=== PATIENT | female | born 1985 | race Caucasian/White ===

== ENCOUNTER 2017-08-12 06:00 | Inpatient (IN) ==
--- OUTSIDE RECORDS SUMMARY | 2017-08-12 06:11 | External Medical Summary | Continuity of Care Document ---
:1985 Author Organization [facility] Address [address] [place], [place] [address] Phone Allergies, Adverse Reactions, Alerts Substance Reaction Severity Status ibuprofen Unknown Active Medications Medication Instructions Dosage Effective Dates Status Comments (start - stop) 28 mg take 1 tablet by Not Available - Active iron-800 mcg oral route every tablet day Problems Condition Effective Dates (start - stop) Clinical Status Encounter for [facility] - , first trimester Less than 8 weeks gestation of - Procedures Procedure Date Unknown Results Test Name Date and Time Measure Units Reference Range Abnormal Flag Comments Unknown Advance Directives Directive Yes / No Effective Date File Name Unknown Encounters Encounter Practice Location Reason(s) Diagnoses Date Provider Care Team Description For Visit Members Rossana [place] [facility]os In [facility] -2016 Wendy. [facility] [place], Medical [address], [place], [address], [id number], [place], tel:[phone], [address] [place]. tel:[phone] Rossana [place] Encounter for Burgos In [facility] of -2017 Wendy. [facility], normal Medical [address], , [place], first [place] [address], [id number], trimesterLess [place], [place] than 8 weeks [place], tel:[phone] gestation of [id number], [id number] [place]. tel:[phone] Family History Family Member Diagnosis Age At Onset No family history of Stroke No family history of Breast Cancer Paternal Grandmother Diabetes No family history of Colon Cancer No family history of Cardiovascular Disease No family history of Epilepsy No family history of Uterine Cancer No family history of Lung Disease Father Kidney Disease No family history of Hypertension No family history of Thyroid Disorder No family history of Ovarian Cancer No family history of Pulmonary Embolism No family history of Venous Thrombosis No family history of Osteoporosis Immunizations Vaccine Date Status Comments Unknown Payers Payer name Insurance type Covered republican ID Authorization(s) Unknown Social History Type Description Quantity Date Captured Unknown Vital Signs Date / Height Weight BMI Pulse Blood Temperature Respiratory Body Head BMI Time: Rate Pressure Rate Surface Circumference percentile Area Unknown Chief Complaint And Reason For Visit Unknown Chief Complaint And Reason For Visit Reason For Referral Reason For Referral Unknown Plan Of Care Date Type Action Status Appointment Marina Dejesus BOOKED Date Type Problem Goal Intervention Status Start Date Unknown. History Of Present Illness Encounter Date Complaint History Of Present Illness This patient has no known history of present illness Functional Status Encounter Date Functional Assessment Cognitive Assessment Unknown Medications Administered Medication Instructions Dosage Effective Dates (start - stop) Status Comments Drug Treatment Unknown Instructions Date Instruction Additional Information new ob handbook HIV and other routine tests risk factors identified by history travel tobacco (ask, advise, assess, assist and arrange) alcohol illicit / recreational drugs use of any medications (including supplements, vitamins, herbs, OTC drugs) smoking counseling domestic violence seat belt use childbirth classes / hospital facilities anticipated course of care nutrition and weight gain counseling, special diet toxoplasmosis precautions (cats / raw meat) sexual activity exercise indications for ultrasound influenza vaccine environmental / work hazards hospital registration genetic testing Zika virus assessment & precautions
--- OUTSIDE RECORDS SUMMARY | 2017-08-12 06:11 | External Medical Summary | Continuity of Care Document ---
:1987 Author Organization [facility] Address [address] [place], [place] [address] Phone Allergies, Adverse Reactions, Alerts Substance Reaction Severity Status ibuprofen Unknown Active Medications Medication Instructions Dosage Effective Dates Status Comments (start - stop) 28 mg take 1 tablet by Not Available - Active iron-800 mcg oral route every tablet day Problems Condition Effective Dates (start - stop) Clinical Status Encounter for suprvsn of normal - , second trimester 26 weeks gestation of - Encounter for suprvsn of normal - , first trimester Less than 8 weeks gestation of - Matern care for oth or susp poor fetl - gr, 1st tri, unsp 13 weeks gestation of - Matern care for oth or susp poor fetl - grth, 2nd tri, unsp 18 weeks gestation of - Low lying placenta NOS or w/out - hemorrhage, second trimester 18 weeks gestation of - Encounter for suprvsn of normal - , second trimester 22 weeks gestation of - Procedures Procedure Date OB Visit No Charge Glucose test Hemoglobin count, colorimetric Hematocrit blood count Venpnctr fngr/heel/ear stick routne Results Test Name Date and Time Measure Units Reference Range Abnormal Flag Comments Panel Description: Glucose [Mass/volume] in Serum or Plasma --1 hour post 50 g glucose PO GLUCOSE, GESTATIONAL 84 mg/dL <140 N Test performed at [facility] (50G)-140 15:50:00 DIAGNOSTICS [id number] [place] [id number]: GASTON SAENZ DO,MPH Panel Description: HEMOGLOBIN + HEMATOCRIT HEMOGLOBIN 15:50:00 11.5 g/dL 11.7-15.5 L HEMATOCRIT 15:50:00 32.7 % 35.0-45.0 L REPORT COMMENT:FASTING :NOTest performed at [facility] [id number] [place] [address]Director: GASTON SAENZ DO,MPH Advance Directives Directive Yes / No Effective Date File Name Unknown Encounters Encounter Practice Location Reason(s) Diagnoses Date Provider Care Description For Visit Team Members Rossana [place] En[facility] for Nov-2 [facility] [place]. Clai MCMILLAN, normal 7 700 [address], , [facility] , [email or web address] [place] weeks gestation 120, tel:[phone], [id number] , [place]. tel:[phone] Rossana [place] Encounter for Oct-2 [facility] [place]. Cali MCMILLAN, normal 7 700 [address], , [place], [place], [facility] , [email or web address] [place] Figuered[place] weeks gestation 120, tel:[phone], [id number] , [place]. tel:[phone] Rossana [place] Low lying Sep-2 Burgos In Womens placenta NOS or 5-201 Wendy. Cali MCMILLAN, w/out 7 700 [address], hemorrhage, [facility] , [id number] [place] Figuered[place] weeks gestation 120, tel:[phone], [id number] , [place]. tel:[phone] Rossana [place] Matern care for Sep-2 Burgos In Womens Ultrasound oth or susp - Wendy. Cali MCMILLAN, poor fetl grth, 7 700 [address], 2nd tri, unsp18 [place], [place], weeks gestation Center , of [place] Fig[place]red[place] 120, tel:[phone] [place] [address] [place], [id number] , [place]. tel: [phone] Rossana [place] Matern care for Jan- Burgos In Womens oth or susp 3-201 Wendy. [facility] [place], poor fetl grth, 7 700 [address], 1st tri, unsp13 [place], [place], weeks gestation Center [id number], of [place] Fig[place]red[place] 120, tel:[phone] [place] [address] [place], [id number] , [place]. tel: [phone] Rossana [place] Encounter for Dec- Burgos In Womens suprvsn of 6-201 Wendy. Health [place], normal 7 700 [address], , [place], [place], first Center , trimesterLess [place] Fig[place]red[place] than 8 weeks 120, tel:[phone] gestation of [place] [address] [place], [id number] , [place]. tel: [phone] Family History Family Member Diagnosis Age At [...] Unknown Payers Payer name Insurance type Covered libertarian ID Authorization(s) Unknown Social History Type Description Quantity Date Captured Alcohol Use Details No Caffeine Use Details Unknown Tobacco Use Status Unknown Smoking Status Never smoker Vital Signs Date / Height Weight BMI Pulse Blood Temperature Respiratory Body Head BMI Time: Rate Pressure Rate Surface Circumference percentile Area 157.20 28.7 104/58 lbs 5 mm[Hg] 2:52 kg/m PM eter (2) Chief Complaint And Reason For Visit Unknown Chief Complaint And Reason For Visit Reason For Referral Reason For Referral Unknown Plan Of Care Date Type Action Status Appointment Marina Dejesus BOOKED Future Order: Radiology Order Complete OB Ultrasound > 14 Ordered Weeks ([id number]) Date Type Problem Goal Intervention Status Start Date Unknown. History Of Present Illness Encounter Date Complaint History Of Present Illness This patient has no known history of present illness Functional Status Encounter Date Functional Assessment Cognitive Assessment Unknown Medications Administered Medication Instructions Dosage Effective Dates (start - stop) Status Comments Drug Treatment Unknown Instructions Date Instruction Additional Information gestational glucose lab screening new ob handbook HIV and other routine tests risk factors identified by history travel tobacco (ask, advise, assess, assist and arrange) alcohol illicit / recreational drugs use of any medications (including supplements, vitamins, herbs, OTC drugs) smoking counseling domestic violence seat belt use childbirth classes / hospital facilities hospital registration anticipated course of care nutrition and weight gain counseling, special diet genetic testing Zika virus assessment & precautions toxoplasmosis precautions (cats / raw meat) sexual activity exercise indications for ultrasound influenza vaccine environmental / work hazards
--- OUTSIDE RECORDS SUMMARY | 2017-08-12 06:12 | External Medical Summary | Continuity of Care Document ---
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 OB Panel With An HIV Venpnctr fngr/heel/ear stick routne OB Prepayment Agreement Infct antign, chlamydia trac, ampl Neisseria Gonorrhoeae, Amplification Results Test Name Date and Time Measure Units Reference Range Abnormal Flag Comments Panel Description: OBSTETRIC PANEL WHITE BLOOD CELL 10.8 Thousand/uL 3.8-10.8 N COUNT 15:07:00 RED BLOOD CELL 3.90 Million/uL 3.80-5.10 N COUNT 15:07:00 HEMOGLOBIN 12.5 g/dL 11.7-15.5 N 15:07:00 HEMATOCRIT 35.9 % 35.0-45.0 N 15:07:00 MCV 92.1 fL 80.0-100.0 N 15:07:00 MCH 32.1 pg 27.0-33.0 N 15:07:00 MCHC 34.8 g/dL 32.0-36.0 N 15:07:00 RDW 12.4 % 11.0-15.0 N 15:07:00 PLATELET COUNT 272 Thousand/uL 140-400 N 15:07:00 MPV 9.7 fL 7.5-12.5 N 15:07:00 ABSOLUTE 7927 cells/uL 0741-7014 H NEUTROPHILS 15:07:00 ABSOLUTE 1976 cells/uL 850-3900 N LYMPHOCYTES 15:07:00 ABSOLUTE 799 cells/uL 200-950 N MONOCYTES 15:07:00 ABSOLUTE 65 cells/uL 15-500 N EOSINOPHILS 15:07:00 ABSOLUTE 32 cells/uL 0-200 N BASOPHILS 15:07:00 NEUTROPHILS 73.4 % N 15:07:00 LYMPHOCYTES 18.3 % N 15:07:00 MONOCYTES 7.4 % N 15:07:00 EOSINOPHILS 0.6 % N 15:07:00 BASOPHILS 0.3 % N 15:07:00 ANTIBODY SCREEN, NO ANTIBODIES N RBC W/REFL ID, 15:07:00 DETECTED Reference range TITER AND AG No antibodies detected This assay is a screening test for the detection of red blood cell antibodies. The test is not to be used for pretransfusion screening or for the medical management of an alloimmunized . ABO GROUP O 15:07:00 RH TYPE RH(D) 15:07:00 POSITIVE RPR (DX) W/REFL NON-REACTIVE NON-REACTIV N TITER AND 15:07:00 E CONFIRMATORY TESTING HEPATITIS B NON-REACTIVE NON-REACTIV N SURFACE ANTIGEN 15:07:00 E RUBELLA ANTIBODY 2.75 index N Index (IGG) 15:07:00 Interpretation ----- <0.90 Not consistent with Immunity 0.90-0.99 Equivocal > or=1.00 Consistent with Immunity The presence of rubella IgG antibody suggests immunization or past or current infection withrubella virus.Test performed at [facility] [id number] [place] [address]Leyunec r: GASTON SAENZ DO,MPH Panel Description: HIV 1/2 ANTIGEN/ANTIBODY,FOURTH GENERATION W/RFL HIV NON-REACTIVE NON-REACTIVE N HIV-1 antigen and HIV-1/HIV- 2 antibodies were AG/AB, 15:07:00 notdetected. There is no laboratory evidence of 4TH GEN HIVinfection. PLEASE NOTE: This information has been disclosed toyou from records whose confidentiality may beprotected by state law. If your state requires suchprotection, then the state law prohibits you frommaking any further disclosure of the informationwithout the specific written consent of the personto whom it pertains, or as otherwise permitted by law.A general authorization for the release of medical orother information is NOT sufficient for this purpose. For additional information please refer tohttp://education.[employer] [place]/faq/ICN612(This link is being provided for informational/educational purposes only.) The performance of this assay has not been clinicallyvalidated in patients less than 2 years old. Test performed at [facility] [id number] [place] [address]Ccrhkymk: GASTON SAENZ DO,MPH Panel Description: Bacteria identified in Urine by Culture CULTURE, URINE, 15:08:00 SEE NOTE CULTURE, URINE, ROUTINE ROUTINE MICRO NUMBER: [id number] TEST STATUS: FINAL SPECIMEN SOURCE: URINE SPECIMEN QUALITY: ADEQUATE RESULT: No GrowthREPORT COMMENT:RTest performed at [facility] [id number] [place] [address]Sbsxbvfe: GASTON SAENZ DO,MPH Panel Description: CHLAMYDIA/N. GONORRHOEAE RNA, TMA CHLAMYDIA NOT DETECTED NOT DETECTED N TRACHOMATIS RNA, 15:09:00 TMA NEISSERIA NOT DETECTED NOT DETECTED N GONORRHOEAE RNA, 15:09:00 TMA [id number] SEE NOTE This test was 15:09:00 performed using the APTIMA COMBO2 Assay([employer] The analytical performance characteristics of this assay, when used to test SurePath specimens havebeen determined by [employer]. Test performed at [facility] [id number] [place] [address]Oiyqqrjx: GASTON SAENZ DO,MPH Panel Description: Pap Smear With HPV Reflex If ASCUS Document Advance Directives Directive Yes / No Effective Date File Name Unknown Encounters Encounter Practice Location Reason(s) Diagnoses Date Provider Care Team Description For Visit Members Rossana [place] Encounter for [facility]os In [facility] Wendy. [address] [place] [address], normal Medical [address], , [place], first [address], [id number], trimesterLess [place], [place] than 8 weeks [place], tel:[phone] gestation of [id number], [id number] [place]. tel:[phone] Family History Family Member Diagnosis Age At [...] Unknown Payers Payer name Insurance type Covered alliance party ID Authorization(s) Unknown Social History Type Description Quantity Date Captured Alcohol Use Details No Caffeine Use Details combo 1 cup per day Tobacco Use Status Never smoked tobacco Smoking Status Never smoker Non-Smoking Tobacco Use : No Details Available : No Details Available Details Vital Signs Date / Height Weight BMI [...] smoking counseling domestic violence seat belt use anticipated course of care nutrition and weight gain counseling, special diet toxoplasmosis precautions (cats / raw meat) sexual activity exercise indications for ultrasound influenza vaccine environmental / work hazards childbirth classes / hospital facilities hospital registration genetic testing Zika virus assessment & precautions
--- OUTSIDE RECORDS SUMMARY | 2017-08-12 06:12 | External Medical Summary | Continuity of Care Document ---
:1987 Author Organization [facility] Address [address] [place], [place] [address] Phone Allergies, Adverse Reactions, Alerts Substance Reaction Severity Status ibuprofen Unknown Active Medications Medication Instructions Dosage Effective Dates Status Comments (start - stop) 28 mg take 1 tablet by Not Available - Active iron-800 mcg oral route every tablet day Problems Condition Effective Dates (start - stop) Clinical Status Matern care for oth or susp poor fetl - grth, 2nd tri, unsp 18 weeks gestation of - Encounter for suprvsn of normal - , first trimester Less than 8 weeks gestation of - Matern care for oth or susp poor fetl - grth, 1st tri, unsp 13 weeks gestation of - Low lying placenta NOS or w/out - hemorrhage, second trimester 18 weeks gestation of - Procedures Procedure Date Ultrasound exam of preg uterus, complete Results Test Name Date and Time Measure Units Reference Range Abnormal Flag Comments Unknown Advance Directives Directive Yes / No Effective Date File Name Unknown Encounters Encounter Practice Location Reason(s) Diagnoses Date Provider Care Description For Visit Team Members Rossana [place] Low lying Sep-2 Burgos In Womens placenta NOS or 5-201 Wendy. [facility] [place], w/out 7 700 [address], hemorrhage, Medical [place], [place], [facility] Center [id number], [email or web address] L[place] Figueredo [place] weeks gestation 120, tel:[phone] of [place] [address] [place], [id number] , [place]. tel: [phone] Rossana [place] Matern care for Sep-2 Burgos In Womens Ultrasound oth or susp 5-201 Wendy. Health [place] poor fetl grth, 7 700 [address], 2nd tri, unsp18 [place], [place], weeks gestation Center [id number], of [place] Fig[place]red[place] 120, tel:[phone] [place], [address] [place], [id number] , [place]. tel: [phone] Rossana [place] Matern care for Aug-2 Burgos In Womens oth or susp 3-201 Wendy. Health [place], poor fetl grth, 7 700 [address], 1st tri, unsp13 [place], [place], weeks gestation Center [id number], of [place] Fig[place]red[place] 120, tel:[phone] [place] [address] [place], [id number] , [place]. tel:[phone] Rossana [place] Encounter for Ancelmo-2 Burgos In Womens suprvsn of 6-201 Wendy. [facility] [place], normal 7 700 [address], , [place], [place], first Center [id number], trimesterLess [place] Figueredo [place] than 8 weeks 120, tel:[phone] gestation of [facility] [address] [place], [id number] , [place]. tel:[phone] Family History Family Member Diagnosis Age At [...] Unknown Payers Payer name Insurance type Covered constitution party ID Authorization(s) Unknown Social History Type [...] Complete OB Ultrasound > 14 Ordered Weeks ([id number]) Date Type Problem Goal Intervention Status Start [...]
--- OUTSIDE RECORDS SUMMARY | 2017-08-12 06:12 | External Medical Summary | Continuity of Care Document ---
:1987 Author Organization [facility] Address [address] [place], [place] [address] Phone Allergies, Adverse Reactions, Alerts Substance Reaction Severity Status ibuprofen Unknown Active Medications Medication Instructions Dosage Effective Dates Status Comments (start - stop) 28 mg take 1 tablet by Not Available - Active iron-800 mcg oral route every tablet day Problems Condition Effective Dates (start - stop) Clinical Status Encounter for [facility] - , first trimester Less than 8 weeks gestation of - Procedures Procedure Date Unknown Results Test Name Date and Time Measure Units Reference Range Abnormal Flag Comments Unknown Advance Directives Directive Yes / No Effective Date File Name Unknown Encounters Encounter Practice Location Reason(s) Diagnoses Date Provider Care Team Description For Visit Members Rossana [place] Burgos In [facility] -2016 Wendy. [facility], Medical [address], [place], [address], [id number], [place], [place], tel:[phone], [id number] [place]. tel:[phone] Rossana [place] Encounter for Burgos In [facility] of -2017 Wendy. [facility], normal Medical [address], , [place], first [address], [id number], trimesterLess [place], [place] than 8 weeks [place], tel:[phone] gestation of [id number], [address] [place]. tel:[phone] Family History Family Member Diagnosis Age At [...]
--- OUTSIDE RECORDS SUMMARY | 2017-08-12 06:12 | External Medical Summary | Continuity of Care Document ---
:1987 Author Organization [facility] Allergies Active Description Code Type Severity Reaction Onset Reported/ Identified Relationship Clinical to Patient Status Yes ibuprofen 2377 1 N/A N/A Yes No Known 50340 3 N/A N/A Drug 0 Allergies Medications There is no data. Problems Date Dx Coded Attending Type Code Diagnosis Diagnosed By 03/21/2017 Wendy Burgos O36.5920 Matern care for oth or susp poor fetl grth, 2nd tri, [facility] 03/21/2017 Wendy Burgos3A.18 18 weeks gestation of 06/29/2017 Wendy Burgos O36.5930 Matern care for oth or susp poor fetl grth, third tri, unsp 06/29/2017 Wendy Burgos O44.43 Low Lying Placenta Nos Or W/out Hemorrhage, Third Trimester 06/29/2017 Wendy Burgos3A.32 32 weeks gestation of 07/27/2017 Wendy Burgos O36.5930 Matern care for oth or susp poor fetl grth, third tri, unsp 07/27/2017 Wendy Burgos3A.36 36 weeks gestation of 08/01/2017 Wendy Burgos O36.5930 Matern care for oth or susp poor fetl grth, third tri, unsp 08/01/2017 Wendy Burgos.37 37 weeks gestation of Procedures Code Description [place] [address] Ultrasnd 03/21/2017 exam of preg uterus, compl 62948 Ultrasnd 06/29/2017 preg uterus, flwup/repeat 64029 Ultrasnd 07/27/2017 preg uterus, flwup/repeat 74740 08/01/2017 biophys prfl w/o nstress test Results There is no data. Encounters ACCT No. Visit Discharge Status Pt. Type Provider Facility Loc./Unit Complaint Date/Time [id number] 08/01/2017 08/01/2017 CLS Outpatient Burgos, 15:15:00 23:59:59 Wendy Lilly [id number] 08/01/2017 08/01/2017 CLS Outpatient Burgos, 14:45:00 23:59:59 Wendy Lilly [id number] 07/27/2017 07/27/2017 CLS Outpatient Burgos, 13:50:00 23:59:59 Wendy Lilly [id number] 07/27/2017 07/27/2017 CLS Outpatient Burgos, 13:15:00 23:59:59 Wendy Lilly [id number] 07/13/2017 07/13/2017 CLS Outpatient Burgos, 15:45:00 23:59:59 Wendy Lilly [id number] 06/29/2017 06/29/2017 CLS Outpatient Burgos, 15:55:00 23:59:59 Wendy Lilly [id number] 06/29/2017 06/29/2017 CLS Outpatient Burgos, 15:45:00 23:59:59 Wendy Lilly [id number] 06/07/2017 06/07/2017 CLS Outpatient Burgos, 14:45:00 23:59:59 Wendy Lilly [id number] 05/17/2017 05/17/2017 CLS Outpatient Burgos, 14:45:00 23:59:59 Wendy Lilly [id number] 04/18/2017 04/18/2017 CLS Outpatient Burgos, 15:45:00 23:59:59 Wendy Lilly [id number] 03/22/2017 03/22/2017 CLS Outpatient Burgos, 11:26:00 23:59:59 Wendy Lilly [id number] 03/21/2017 03/21/2017 CLS Outpatient Burgos, 13:55:00 23:59:59 Wendy Lilly [id number] 03/21/2017 03/21/2017 CLS Outpatient Burgos, 13:15:00 23:59:59 Wendy Lilly [id number] 02/16/2017 02/16/2017 CLS Outpatient Burgos, 13:40:00 23:59:59 Wendy Lilly [id number] 01/26/2017 01/26/2017 CLS Outpatient Burgos, 10:00:00 23:59:59 Wendy Lilly [id number] 01/20/2017 01/20/2017 CLS Outpatient Burgos, 11:19:00 23:59:59 Wendy Lilly [id number] 01/19/2017 01/19/2017 [facility] Outpatient Burgos, 14:15:00 23:59:59 Wendy Lilly
--- OUTSIDE RECORDS SUMMARY | 2017-08-12 06:12 | External Medical Summary | Continuity of Care Document ---
:1985 Author Organization [facility] Address [address] [place], [place] [id number] Phone Allergies, Adverse Reactions, Alerts Substance Reaction Severity Status ibuprofen Unknown Active Medications Medication Instructions Dosage Effective Dates Status Comments (start - stop) 28 mg take 1 tablet by Not Available - Active iron-800 mcg oral route every tablet day Problems Condition Effective Dates (start - stop) Clinical Status Matern care for oth or susp poor fetl - grth, third tri, unsp Low Lying Placenta Nos Or W/out - Hemorrhage, Third Trimester 32 weeks gestation of - Encounter for suprvsn of normal - , first trimester Less than 8 weeks gestation of - Matern care for oth or susp poor fetl - grth, 1st tri, unsp 13 weeks gestation of - Matern care for oth or susp poor fetl - grth, 2nd tri, unsp 18 weeks gestation of - Matern care for oth or susp poor fetl - grth, third tri, unsp 34 weeks gestation of - Low lying placenta NOS or w/out - hemorrhage, second trimester 18 weeks gestation of - Low Lying Placenta Nos Or W/out - Hemorrhage, Third Trimester Encounter for suprvsn of normal - , third trimester 29 weeks gestation of - Encounter for suprvsn of normal - , second trimester 22 weeks gestation of - Encounter for suprvsn of normal - , second trimester 26 weeks gestation of - Encounter for suprvsn of normal - , third trimester 32 weeks gestation of - Procedures Procedure Date Ultrasnd preg uterus, flwup/repeat Results Test Name Date and Time Measure Units Reference Range Abnormal Flag Comments Unknown Advance Directives Directive Yes / No Effective Date File Name Unknown Encounters Encounter Practice Location Reason(s) Diagnoses Date Provider Care Description For Visit Team Members [facility] Matern care for oth [place]-1 [place] [facility] Womens or susp poor fetl 7-201 Wendy. maría Miller, third tri, 8 700 [address] [email or web address] weeks Medical 1522, gestation of [facility], Lorne Figueredo, 120, , [facility] [place], tel:[phone] , [place]. tel:[phone] Rossana [place] Encounter for [place]-0 [place] Womens suprvsn of normal 3-201 Wendy. Cali MCMILLAN, , third 8 700 PO Box weeks Medical 1522, gestation of [facility], Lorne Figueredo, 120, , [facility] [place], tel:[phone] , [place]. tel:[phone] [facility] Matern care for oth [place]-0 [place] [facility] Womens Ultrasound or susp poor fetl 3-201 Wendy. maría Miller, third tri, 8 700 PO Box unspLow Lying Medical 1522, Placenta Nos Or Center [place], W/out Hemorrhage, Lorne Figueredo, Third [id number] 120, [id number], weeks gestation of [facility] [place], tel:[phone] , [place]. tel:[phone] [facility] Low Lying Placenta Dec-1 [place] [facility] Womens Nos Or W/out 2-201 Wendy. aCli MCMILLAN Hemorrhage, Third 7 700 PO Box TrimesterEncounter Medical 1522, for suprvsn of [facility], normal , Lorne Figueredo, third [email or web address] 120, [id number], weeks gestation of [facility] [place], tel:[phone] , [place]. tel: [phone] Rossana [place] Encounter for Nov-2 [place] Womens suprvsn of normal 1-201 Wendy. Health [place], , second 7 700 [address] [email or web address] weeks Medical 1522, gestation of [facility], Lorne Figueredo, 120, [id number], [place], tel:[phone] , [place]. tel: [phone] Rossana [place] Encounter for Oct-2 [place] Womens suprvsn of normal 3-201 Wendy. Health [place], , second 7 700 [address] [email or web address] weeks Medical 1522, gestation of [facility], Lorne Figueredo, 120, [id number], [place], tel:[phone] , [place]. tel: [phone] Rossana [place] Low lying placenta Sep-2 [place] [facility] Womens NOS or w/out 5-201 Wendy. Cali MCMILLAN, hemorrhage, second 7 700 [address] [email or web address] weeks Medical 1522, gestation of [facility], Lorne Figueredo, 120, [id number], [place], [place], tel:[phone] , [place]. tel: [phone] Rossana [place] Matern care for oth Sep-2 [place] [facility] Womens Ultrasound or susp poor fetl 5-201 Wendy. maría Miller, 2nd tri, 7 700 [address] [email or web address] weeks Medical 1522, gestation of [facility], Lorne Figueredo, 120, [id number], [place], [place], tel:[phone] , [place]. tel: [phone] Rossana [place] Matern care for oth Aug-2 [place] In Womens or susp poor fetl 3-201 Wendy. maría Miller, 1st tri, 7 700 [address] [email or web address] weeks Medical 1522, gestation of [facility], Lorne Figueredo, 120, [id number], [place], tel:[phone] , [place]. tel: [phone] Rossana [place] Encounter for Ancelmo-2 [place] Womens suprvsn of normal 6-201 Wendy. [facility], , first 7 700 PO Box trimesterLess than Medical 1522, 8 weeks gestation [facility], of Lorne Figueerdo, 120, [id number], [place], [place], [phone] , [place]. tel: [phone] Family History Family Member Diagnosis Age At [...] of Osteoporosis Immunizations Vaccine Date Status Comments Tdap completed Source: Other Provider Payers Payer name Insurance type Covered alliance party ID Authorization(s) Unknown Social History Type Description Quantity Date Captured Alcohol Use Details No Caffeine Use Details Unknown Tobacco Use Status Unknown Smoking Status Never smoker Vital Signs Date / Height Weight BMI Pulse Blood Temperature Respiratory Body Head BMI Time: Rate Pressure Rate Surface Circumference percentile Area 9 2 3:52 kg/m PM eter (2) Chief Complaint And Reason For Visit Unknown Chief Complaint And Reason For Visit Reason For Referral Reason For Referral Unknown Plan Of Care Date Type Action Status Appointment Marina Dejesus BOOKED Future Order: Radiology Order Ultrasound OB Follow-up ([id number]) Ordered Future Order: Radiology Order Complete OB Ultrasound > 14 Ordered Weeks ([id number]) Date Type Problem Goal Intervention Status Start [...]
--- OUTSIDE RECORDS SUMMARY | 2017-08-12 06:12 | External Medical Summary | Continuity of Care Document ---
:1987 Author Organization [facility] [facility] Address [address] [place], [place] [id number] Phone Allergies, Adverse Reactions, Alerts Substance Reaction Severity Status ibuprofen Unknown Active Medications Medication Instructions Dosage Effective Dates Status Comments (start - stop) 28 mg take 1 tablet by Not Available - Active iron-800 mcg oral route every tablet day Problems Condition Effective Dates (start - stop) Clinical Status Matern care for oth or susp poor fetl - grth, tri, unsp 13 weeks gestation of - Encounter for suprvsn of normal - , first trimester Less than 8 weeks gestation of - Procedures Procedure Date OB Visit No Charge Results Test Name Date and Time Measure Units Reference Range Abnormal Flag Comments Unknown Advance Directives Directive Yes / No Effective Date File Name Unknown Encounters Encounter Practice Location Reason(s) Diagnoses Date Provider Care Team Description For Visit Members Rossana [place] Matern care for [place] In Women oth or susp -2016 Wendy. 700 [employer] [place], [facility], Medical [address], 1st tri, unsp13 Center [place], weeks gestation Lorne 120, [id number], of [place], tel:[phone] [place]. tel:[phone] Rossana [place] Encounter for [place] In Women suprvsn of 2017 Wendy. 700 [employer] [place], normal Medical [address], , Center [place], first Lorne 120, [id number], trimesterLess [place], [place] than 8 weeks [place], tel:[phone] gestation of [id number], [id number] [place]. tel:[phone] Family History Family Member Diagnosis Age At [...] Unknown Payers Payer name Insurance type Covered democrat ID Authorization(s) Unknown Social History Type Description Quantity Date Captured Alcohol Use Details No Caffeine Use Details Unknown Tobacco Use Status Unknown Smoking Status Never smoker Vital Signs Date / Height Weight BMI Pulse Blood Temperature Respiratory Body Head BMI Time: Rate Pressure Rate Surface Circumference percentile Area 139.70 25.5 106/59 2017 lbs 5 mm[Hg] 1:39 kg/m PM eter (2) Chief Complaint And [...]
--- OUTSIDE RECORDS SUMMARY | 2017-08-12 06:12 | External Medical Summary | Continuity of Care Document ---
:1987 Author Organization [facility] Address [address] [place], [place] [id number] Phone Allergies, Adverse Reactions, Alerts Substance Reaction Severity Status ibuprofen Unknown Active Medications Medication Instructions Dosage Effective Dates Status Comments (start - stop) 28 mg take 1 tablet by Not Available - Active iron-800 mcg oral route every tablet day Problems Condition Effective Dates (start - stop) Clinical Status Low lying placenta NOS or w/out - hemorrhage, second trimester 18 weeks gestation of - Encounter for suprvsn of normal - , first trimester Less than 8 weeks gestation of - Matern care for oth or susp poor fetl - , tri, unsp 13 weeks gestation of - Matern care for oth or susp poor fetl - , 2nd tri, unsp 18 weeks gestation of - Procedures Procedure [...] Womens placenta NOS or 5-201 Wendy. Health [place], w/out 7 700 [address], hemorrhage, Medical [facility] [id number], [email or web address] Lorne Figueredo [place] weeks gestation 120, tel:[phone] of [place] [phone] [place], [id number] , [place]. tel: [phone] Rossana [place] Matern care for Sep-2 [place] [facility] Womens Ultrasound oth or susp 5-201 Wendy. marilia Miller fetl grth, 7 700 [address], 2nd tri, unsp18 [place], [place], weeks gestation Center [id number], of L[place] Figueredo [place] 120, tel:[phone] [place] [address] [place], [id number] , [place]. tel: [phone] Rossana [place] Matern care for Aug-2 [place] [facility] Womens oth or susp 3-201 Wendy. Health [place], poor fetl grth, 7 700 [address], 1st tri, unsp13 Medical [place], weeks gestation Center [id number], of L[place] Figueredo [place] 120, tel:[phone] [place] [address], [id number] , [place]. tel:[phone] Rossana [place] Encounter for Ancelmo-2 [place] Womens suprvsn of 6-201 Wendy. Health [place], normal 7 700 [address], , [place], [place], first Center [id number], trimesterLess Lorne Figueredo [place] than 8 weeks 120, tel:[phone] gestation of [facility] [address] [place], [id number] , [place]. tel: [phone] Family History Family Member Diagnosis Age At [...] Rate Pressure Rate Surface Circumference percentile Area 145.90 26.6 lbs 8 mm[Hg] 2:02 kg/m PM eter (2) Chief Complaint And Reason For Visit Unknown Chief Complaint And Reason For Visit Reason For Referral Reason For Referral Unknown Plan Of Care Date Type Action Status Appointment Marina Dejesus BOOKED Future Order: Radiology Order Complete OB Ultrasound > 14 Ordered Weeks ([id number]) Date Type Problem Goal Intervention Status Start [...]
--- OUTSIDE RECORDS SUMMARY | 2017-08-12 06:12 | External Medical Summary | Continuity of Care Document ---
:1985 Author Organization [facility] Address [address] [place], [place] [address] Phone Allergies, Adverse Reactions, Alerts Substance Reaction Severity Status ibuprofen Unknown Active Medications Medication Instructions Dosage Effective Dates Status Comments (start - stop) 28 mg take 1 tablet by Not Available - Active iron-800 mcg oral route every tablet day Problems Condition Effective Dates (start - stop) Clinical Status Encounter for suprvsn of normal - , third trimester 32 weeks gestation of - Encounter for [...] tri, unsp 34 weeks gestation of - Matern care for oth or susp poor fetl - grth, third tri, unsp Low Lying Placenta Nos Or W/out - Hemorrhage, Third Trimester 32 weeks gestation of - Low lying placenta [...] second trimester 26 weeks gestation of - Procedures Procedure Date [...] Box [email or web address] weeks Medical 1522, gestation of [facility] Lorne Figueredo, 120, , [facility] [place], tel:[phone] , [place]. tel: [phone] Rossana [place] Encounter for [place]-0 [place] Womens suprvsn of normal 3-201 Wendy. Cali MCMILLAN, , third 8 700 [address] [email or web address] weeks Medical 1522, gestation of [facility], Lorne Figueredo, 120, , [facility] [place], tel:[phone] [address] , [place]. tel: [phone] Rossana [place] Matern care for oth [place]-0 [place] In Womens Ultrasound or susp poor fetl 3-201 Wendy. maría Miller, third tri, 8 700 [address] unspLow Lying Medical 1522, Placenta Nos Or Center [place], W/out Hemorrhage, Lorne Figueredo, Third [email or web address] 120, [id number], weeks gestation of [facility] [place], tel:[phone] , [place]. tel: [phone] [facility] Low Lying Placenta Dec-1 [place] In Womens Nos Or W/out 2-201 Wendy. Cali MCMILLAN Hemorrhage, Third 7 700 PO Box TrimesterEncounter Medical 1522, for suprvsn of [facility], normal , Lorne Figueredo, third [email or web address] 120, [id number], weeks gestation of [facility] [place], tel:[phone] [address] , [place]. tel:[phone] Rossana [place] Encounter for Nov-2 [place] Womens suprvsn of normal 1-201 Wendy. Health [place], , second 7 700 [address] [email or web address] weeks Medical 1522, gestation of [facility], Lorne Figueredo, 120, [id number], [place], tel:[phone] , [place]. tel: [phone] Rossana [place] Encounter for Oct-2 [place] Womens suprvsn of normal 3-201 Wendy. Health [place], , second 7 700 PO Box [email or web address] weeks Medical 1522, gestation of [facility], Lorne Figueredo, 120, [id number], [place], [place], tel:[phone] , [place]. tel: [phone] Rsosana [place] Low lying placenta Sep-2 [place] In Womens NOS or w/out 5-201 Wendy. Health [place], hemorrhage, second 7 700 PO Box [email or web address] weeks Medical 1522, gestation of [facility], Lorne Figueredo, 120, [id number], [place], [place], tel:[phone] , [place]. tel: [phone] Rossana [place] Matern care for oth Sep-2 [place] In Womens Ultrasound or susp poor fetl 5-201 Wendy. maría Miller, 2nd tri, 7 700 [address] [email or web address] weeks Medical 1522, gestation of [facility], Lorne Figueredo, 120, [id number], [place], tel:[phone] , [place]. tel: [phone] Rossana [place] Matern care for oth Aug-2 [place] In Womens or susp poor fetl 3-201 Wendy. maíra Miller, 1st tri, 7 700 [address] [email or web address] weeks Medical 1522, gestation of [facility], Lorne Figueredo, 120, [id number], [place], tel:[phone] , [place]. tel: [phone] Rossana [place] Encounter for Ancelmo-2 [place] In Womens suprvsn of normal 6-201 Wendy. Health [place], , first 7 700 PO Box trimesterLess [facility] Medical 1522, 8 weeks gestation [facility], of Lorne Figueredo, 120, [id number], [facility] [place], tel:[phone] [address] , [place]. tel: [phone] Family History Family Member Diagnosis Age At [...] Provider Payers Payer name Insurance type Covered constitution party ID Authorization(s) Unknown Social History Type Description Quantity Date Captured Alcohol Use Details No Caffeine Use Details Unknown Tobacco Use Status Unknown Smoking Status Never smoker Vital Signs Date / Height Weight BMI Pulse Blood Temperature Respiratory Body Head BMI Time: Rate Pressure Rate Surface Circumference percentile Area 163.00 29.8 lbs 1 mm[Hg] 4:21 kg/m PM eter (2) Chief Complaint And Reason For Visit Unknown Chief Complaint And Reason For Visit Reason For Referral Reason For Referral Unknown Plan Of Care Date Type Action Status Appointment Marina Dejesus BOOKED Future Order: Radiology Order Complete OB Ultrasound > 14 Ordered Weeks ([id number]) Future Order: Radiology Order Ultrasound OB Follow-up ([id number]) Ordered Date Type Problem Goal Intervention Status Start [...]
--- OUTSIDE RECORDS SUMMARY | 2017-08-12 06:12 | External Medical Summary | Continuity of Care Document ---
:1987 Author Organization [facility] Address [address] [place], [place] [address] Phone Allergies, Adverse Reactions, Alerts Substance Reaction Severity Status ibuprofen Unknown Active Medications Medication Instructions Dosage Effective Dates Status Comments (start - stop) 28 mg take 1 tablet by Not Available - Active iron-800 mcg oral route every tablet day Problems Condition Effective Dates (start - stop) Clinical Status Low Lying Placenta Nos Or W/out - [...] oth or susp poor fetl - gr, 2nd tri, unsp 18 weeks gestation of [...] Description For Visit Team Members [facility] Low Lying Placenta Dec-1 [place] In Womens Nos Or W/out 2-201 Wendy. Health [place], Hemorrhage, Third 7 700 PO Box TrimesterEncounter Medical 1522, for suprvsn of [facility], normal , Lorne Figueredo, third [email or web address] 120, [id number], weeks gestation of [place], tel:[phone] , [place]. tel: [phone] [facility] Encounter for Nov-2 [place] In Womens suprvsn of normal 1-201 Wendy. Health [place], , second 7 700 PO Box [email or web address] weeks Medical 1522, gestation of [facility], Lorne Figueredo, 120, , [place], tel:[phone] , [place]. tel: [phone] Rossana [place] Encounter for Oct-2 [place] In Womens suprvsn of normal 3-201 Wendy. Health [place], , second 7 700 PO [address] [email or web address] weeks Medical 1522, gestation of [facility], Lorne Figueredo, 120, , [place], tel:[phone] , [place]. tel: [phone] Rossana [place] Low lying placenta Sep-2 [place] In Womens NOS or w/out 5-201 Wendy. Health [place], hemorrhage, second 7 700 PO Box [email or web address] weeks Medical 1522, gestation of [facility], Lorne Figueredo, 120, , [place], tel:[phone] , [place]. tel: [phone] Rossana [place] Matern care for oth Sep-2 [place] In Womens Ultrasound or susp poor fetl 5-201 Wendy. maría Miller, 2nd tri, 7 700 [address] [email or web address] weeks Medical 1522, gestation of [facility], Lorne Figueredo, 120, [id number], [place], tel:[phone] , [place]. tel: [phone] Rossana [place] Matern care for oth Aug-2 [place] In Womens or susp poor fetl 3-201 Wendy. Health PA, grth, 1st tri, 7 700 PO Box [email or web address] weeks Medical 1522, gestation of [facility], Lorne Figueredo, 120, [id number], [facility] [place], tel:[phone] [address] , [place]. tel: [phone] Rossana [place] Encounter for [place] In Womens suprvsn of normal 6-201 Wendy. [facility] [place], , first 7 700 PO Box trimesterLess than Medical 1522, 8 weeks gestation [facility], of Lorne Figueredo, 120, [id number], [facility] [place], tel:[phone] , [place]. tel: [phone] Family History Family Member Diagnosis Age At [...] Rate Pressure Rate Surface Circumference percentile Area 163.60 29.9 /64 lbs 2 mm[Hg] 2:56 kg/m PM eter (2) 5 2:52 kg/m PM eter (2) Chief Complaint And Reason For Visit Unknown Chief Complaint And Reason For Visit Reason For Referral Reason For Referral Unknown Plan Of Care Date Type Action Status Appointment Marina Dejesus BOOKED Appointment Marina Dejesus BOOKED Future Order: Radiology Order Complete OB Ultrasound > 14 Ordered Weeks ([id number]) Date Type Problem Goal Intervention Status Start [...]
--- OUTSIDE RECORDS SUMMARY | 2017-08-12 06:12 | External Medical Summary | Continuity of Care Document ---
:1987 Author Organization [facility] [employer] [facility] Address [address] [place], [place] [address] Phone Allergies, Adverse Reactions, Alerts Substance Reaction [...] oth or susp poor fetl - , 1st tri, unsp 13 weeks gestation of [...] Description For Visit Team Members Rossana [place] Sep-2 [place] In Womens 6-201 Wendy. Health PA, 7 700 [address], [place], [place], [place] [id number], Lorne Figueredo 120, tel:[phone] [place] [address] [place], [id number] , . tel: [phone] Rossana [place] Low lying Sep-2 [place] In Womens placenta NOS or 5-201 Wendy. Health [place], w/out 7 700 [address], hemorrhage, [place], [facility] [id number], [email or web address] Lorne Figueredo weeks gestation 120, tel:[phone] of [place] [address] [place], [id number] , [place]. tel: [phone] Rossana [place] Matern care for Sep-2 [place] In Womens Ultrasound oth or susp 5-201 Wendy. Health [place], poor fetl grth, 7 700 [address], 2nd tri, [email or web address] [place], weeks gestation Center [id number], of [place] 120, tel:[phone] [place] [address], [id number] , [place]. tel: [phone] Rossana [place] Matern care for Aug-2 [place] In Womens oth or susp 3-201 Wendy. Health [place], poor fetl grth, 7 700 [address], 1st tri, [email or web address] [place], weeks gestation Center [id number], of [place]red[place] 120, tel:[phone] [place] [address], [id number] , [place]. tel: [phone] Rossana [place] Encounter for Ancelmo-2 [place] In Womens suprvsn of 6-201 Wendy. Health [place], normal 7 700 [address], , [place], first Center [id number], trimesterLess Lorne Figueredo [place] than 8 weeks 120, tel:[phone] gestation of [place], [address] [place], [id number] , [place]. tel: [phone] Family History Family Member Diagnosis Age At [...] Unknown Payers Payer name Insurance type Covered green party ID Authorization(s) Unknown Social History Type [...] Complete OB Ultrasound > 14 Ordered Weeks ([id number]) Date Type Problem Goal Intervention Status Start [...] herbs, OTC drugs) smoking counseling domestic violence anticipated course of care nutrition and weight gain counseling, special diet toxoplasmosis precautions (cats / raw meat) sexual activity exercise indications for ultrasound influenza vaccine environmental / work hazards seat belt use childbirth classes / hospital facilities hospital registration genetic testing Zika virus assessment & precautions
[2017-08-12] MEDS ORDERED: D5LR 1,000 ML IV PRN (06:15)
[2017-08-12] MEDS ORDERED: MAG-AL + SIM ORAL LIQUID 30ml PO PRN (06:15)
[2017-08-12] MEDS ORDERED: METHYLERGONOVINE 0.2 MG/ML INJECTION IM PRN (06:15)
[2017-08-12] MEDS ORDERED: CALCIUM CARBONATE Chewable 500mg TABLET PO PRN (06:15)
[2017-08-12] MEDS ORDERED: LIDOCAINE 1% (10mg/ml) 2mL INJ PF SDV ID PRN (06:15)
[2017-08-12] MEDS ORDERED: OXYTOCIN DRIP 30 UNIT/500 ML ML IV PRN (06:15)
[2017-08-12] MEDS ORDERED: CARBOPROST 250 MCG/ML INJECTION IM PRN (06:15)
[2017-08-12 06:44] VITALS: BMI 30.8
[2017-08-12] MEDS: LR 1,000 ML IV PRN ×2 (06:45→11:27)
[2017-08-12] MEDS ORDERED: ONDANSETRON 4 MG/2 ML INJECTION IVP PRN (11:09)
[2017-08-12] MEDS ORDERED: NALOXONE 0.4 MG/ML INJECTION IVP PRN (11:09)
[2017-08-12] MEDS ORDERED: ROPIVACAINE 1% 10MG/ML INJ 200 MG, SUFentanil 50 MCG in NS 100 ML EPI PRN (11:09)
[2017-08-12] MEDS ORDERED: DiphenhydrAMINE 50 MG/ML INJECTION IVP PRN (11:09)
--- NOTE | 2017-08-12 11:09 | Anesthesia Preoperative Report ---
Anesthesia Epidural/Spinal Rec - Date and Time Date: 08/12/17 Preoperative Diagnosis: g2, p1, 39 weeks Procedure: Labor Epidural Plan: Epidural - Vital Signs Vital Signs: Temperature 98.3 F 08/12/17 06:37 Pulse Rate 76 08/12/17 06:37 Respiratory Rate 18 08/12/17 06:37 Blood Pressure 108/60 08/12/17 06:37 Pulse Oximetry 97 08/12/17 06:37 NPO since: 0500 /Para: P:1 - Medictaions & Allergies Inpatient Medications: Current Medications Acetaminophen (Tylenol) 500 - 1,000 mg PO Q4H PRN PRN Reason: Pain Al Hydroxide/Mg Hydroxide (Maalox Plus) 30 ml PO Q3H PRN PRN Reason: Indigestion Calcium Carbonate (Tums) 500 - 1,000 mg PO Q2H PRN PRN Reason: Indigestion Carboprost Tromethamine (Hemabate) 250 mcg IM O PRN PRN Reason: .Downtime Lactated Ringer's (Lactated Ringers) 1,000 mls @ 999 mls/hr IV .Q1H1M PRN Last Admin: 08/12/17 06:45 Dose: 999 mls/hr Oxytocin (Pitocin Drip) 30 unit in 500 mls @ 2 mls/hr IV .Q24H PRN; Protocol PRN Reason: Induction/Augmentation Last Admin: 08/12/17 07:32 Dose: 2 mls/hr Dextrose/Lactated Ringer's (Dextrose 5%-Lactated Ringers) 1,000 mls @ 125 mls/ hr IV .Q8H PRN PRN Reason: Labor Last Admin: 08/12/17 07:33 Dose: 125 mls/hr Lidocaine HCl (Xylocaine-Mpf 1% Vial) 0.2 mg ID O PRN PRN Reason: IV Start Methylergonovine Maleate (Methergine) 0.2 mg IM O PRN Misoprostol (Cytotec) 800 mcg [place] ONCE PRN Allergies/Adverse Reactions: Allergies Allergy/AdvReac Type Severity Reaction Status Date / Time ibuprofen Allergy Verified 08/12/17 07:12 - Home Medications Home Medications: Home Medications Medication Instructions Recorded Confirmed Type Vitamins 1 tab PO DAILY 08/02/17 08/12/17 History - Medical History Neuro/Musculoskeletal: Reports: Other (low back pain with ) Other History: Reports: Now - Surgical History Reproductive Surgery/Treatment: DENIES: Section Anesthesia Reactions: None - Social History Smoking Status: Never smoker - Pertinent Findings Lab Data: CBC and BMP 08/12/17 06:30 - Airway Assessment Mallampati Score: II TMD: 3 Fingerbreadths Neck Extension: good Overall Assessment: no airway concerns - ASA ASA Score: 2 - Discussion Discussion: Discussed risks/options/alternatives of anesthesia and questions answered. Patient consents. Nursing pain assessment noted. Attestation Statement: Prior to the delivery of any anesthetic medication, I examined the patient, developed the plan, obtained the patient's consent and discussed the risk and benefits of the procedure with the patient/guardian.
[2017-08-12] MEDS ORDERED: DiphenhydrAMINE 25 MG CAPSULE PO PRN (13:18)
[2017-08-12] MEDS ORDERED: HYDROCORTISONE 2.5% CREAM 30gm RECTALLY PRN (13:18)
[2017-08-12] MEDS ORDERED: HYDROCODONE/APAP 5mg/325mg TABLET PO PRN (13:18)
[2017-08-12] MEDS ORDERED: OXYTOCIN DRIP 30 UNIT/500 ML ML IV SCH (13:30)
--- NOTE | 2017-08-12 13:39 | Labor and Delivery Note ---
DATE OF DELIVERY 08/12/2017 SUMMARY Marina is a 31-year-old 3, para 1 at 39 weeks gestational age who was brought in this morning for a Pitocin induction due to poor growth. Her membranes were ruptured artificially, returning clear fluids. She received an epidural. She progressed nicely throughout the day. She only had to push with two contractions and had a spontaneous vaginal delivery in the ROD position. Baby was vigorous at delivery so she was placed on mom's abdomen and the cord clamping was delayed for more than two minutes. The placenta delivered spontaneously. She had no lacerations. Baby is a viable female , Apgars 8/8, weight 3266 g. The name has not been decided yet. Mom and baby tolerated the delivery well. HUGOD
[2017-08-13] MEDS: ACETAMINOPHEN 500 MG TABLET PO PRN ×2 (05:18→11:35)
[2017-08-13] MEDS ORDERED: DOCUSATE CALCIUM 240 MG CAPSULE PO SCH (09:00)
--- NOTE | 2017-08-13 13:07 | Progress Note ---
OB PP Progress Note Free Text - Date Date: 08/13/17 - Progress Note Progress Note: vss af no c/o plans dc today instructions reviewed q&a-krb
[2017-08-13 14:49] VITALS: BP 95/51; PULSE 67; RESP 18; TEMP 98.4; O2SAT 98
--- NOTE | 2017-08-14 17:18 | Anesthesia Postoperative Note ---
- Date and Time Date: 08/13/17 Time: 13:00 - Status Patient Participated in Evaluation: Patient Participated in Person Vital Signs: Temperature 98.4 F 08/13/17 14:48 Pulse Rate 67 08/13/17 14:48 Respiratory Rate 18 08/13/17 14:48 Blood Pressure 95/51 08/13/17 14:48 Pulse Oximetry 98 08/13/17 14:48 Respiratory Function: Airway Patent Cardiovascular Function: Regular Pulse EKG: Sinus Rhythm Mental Status: Alert and Oriented Pain Intensity: 2 Hydration: Taking PO Fluids Complications During Recover: None Apparent Post Anesthesia Care Notes: full motor and sensation - Follow-Up Instructions Instructions: Per Surgeon
== END 2017-08-13 16:45 | disposition home or self-care (01) | DRG 775 ==
LOC: MC 06:06
PROVIDERS: ADMIT Obstetrics & Gynecology; ATTEND Obstetrics & Gynecology